=== PATIENT | male | born 1960 | race Caucasian/White ===

== ENCOUNTER 2023-05-27 09:15 | Emergency (ER) | payer OTHER, SELFPAY ==
[2023-05-27] VITALS (8 sets, daily range): BP systolic 133–204; BP diastolic 72–113
[2023-05-27] MEDS: LOW STRENGTH ASPIRIN 324 MG PO (10:04)
[2023-05-27] MEDS: NITROSTAT (SUBLINGUAL) 0.400000000000000022 MG SL (10:05)
--- NOTE | 2023-05-27 10:10 | ED.GENMED ---
History of Present Illness
General
Chief Complaint: Chest Pain
Source: patient and records (Cardiac catheterization 02/17/2018, proximal and distal Xience LAD stents)
Exam Limitations: none
Time Seen by Provider: 05/27/23 09:51
Nursing documentation reviewed up to this point in time: agreed with
Travel History
Have you had any contact with someone who has COVID-19?: No
Do you have any symptoms of coronavirus? Fever > 100 degrees, chills, cough, shortness of breath, sore throat, loss of taste or smell, muscle aches, or headache?: No
History of Present Illness
History of Present Illness:
63 yo male presents to the emergency department c/o left-sided chest pain that started at 3 AM. He has history of coronary disease and had a stent in 2018. He still has some tightness.
Past History
Past History
ED Past Medical History: CVA, Other (HIV), Other (vascular disease) and Other (HIV+/PVD/)
Social History
Tobacco: Smoker
Alcohol: Occasional
Personal: Partner
Living: with roommate
Phy Exam
Physical Exam
Physical Exam:
Physical Exam
General: no apparent distress, not acutely ill
Neck: supple. no meningeal signs. normal posterior pharynx
Heart: s1/s2 regular rate and rhythm, no murmur. equal radial
pulses.
HEENT: Pupils equal round reactive to light, EOMI
Lungs: no acute respiratory distress. clear bilaterally
Abdomen: normal bowel sounds. not tender. no CVAT
Neuro: alert and oriented. no focal neurological deficits cranial nerves II through XII intact
Skin: no rash
Psychiatric: well kept. interactive and cooperative
Extremities: no edema. no calf tenderness. negative homans. good distal pulses
Scores
Heart Score for Chest Pain Patients
STEMI patient?: No
History: Moderately Suspicious
ECG: Normal
Age: >45 - <65 years
Risk Factors: >/= 3 Risk Factors or History of CAD
Troponin: </= Normal Limit
Heart Score for Chest Pain Patients: 4
Heart Score Risk: 20.3% MACE over next 6 weeks
Course
Orders/Labs/Results
Orders:
Orders
05/27/23 09:25
ECG [Electrocardiogram (*1)] Urgent
Reason for Study: Chest Pain
EKG- Treatment ONCE
05/27/23 10:04
Aspirin Chewable [Low Strength Aspirin] 324 mg PO NOW STA
05/27/23 10:05
Nitroglycerin Sublingual [Nitrostat (Sublingual)] 0.4 mg SL NOW STA
05/27/23 10:10
IV Insert/Care/Rem.- Treatment PRN
05/27/23 10:12
Complete Blood Count/With Diff Urgent
Comprehensive Metabolic Panel Urgent
Troponin I Urgent
05/27/23 10:41
PTT Urgent
Prothrombin Time Urgent
05/27/23 11:42
Echo 2D MMode Color/Doppler Urgent
Reason for Study: Chest pain
05/27/23 11:53
CT Chest/abd/pelvis Angio W/wo Urgent
Comment:
Reason For Exam: chest pain, elevated blood pressure
05/27/23 13:09
Troponin I Routine
05/27/23 13:15
EKG [Electrocardiogram (*1)] Routine
Reason for Study: CAD
Abnormal Lab Results
05/27/23
10:12
MCV 98.9 H fL
(80.0-94.0)
MCH 35.9 H pg
(27.0-31.0)
Glucose 127 H mg/dl
(70-99)
05/27/23 10:12
05/27/23 10:12
Vital Signs
Initial and Last Documented VS:
Initial Vital Signs
Temp Pulse Resp BP Pulse Ox
98.4 F 110 18 204/113 95
05/27/23 09:31 05/27/23 09:31 05/27/23 09:31 05/27/23 09:31 05/27/23 09:31
Last Documented Vital Signs
Temp Pulse Resp BP Pulse Ox
98.4 F 66 24 142/76 92
05/27/23 09:31 05/27/23 14:00 05/27/23 14:00 05/27/23 14:00 05/27/23 14:00
MDM/Problems Addressed
Differential Diagnosis Includes:
Aortic dissection, ACS
MDM/Problems Addressed:
63-year-old male with chest pain, unclear etiology. Seen by cardiology in ED with stable echo, negative CT angiography and negative troponins. Stable for discharge.
Chronic conditions affecting care: DM, CAD, COPD and Other (HIV)
Acute Exacerbation and/or Progression of Chronic Illness: DM, CAD and COPD
*Radiology
Radiology exam reviewed: radiology read reviewed (CTA aorta, no acute findings)
*Pulse Oximetry
Patient hypoxic: no
*EKG
Interpreted by ED Provider?: Yes
EKG Intrepretation Date: 05/27/23
EKG Intrepretation Time: 13:15
Interpretation: normal
Comparison EKG: no changes
Heart Rate: 68
Rate: normal
Rhythm: sinus
[place]: normal axis
Interval: normal interval
QRS Pattern: normal QRS
Ischemia: no ischemia
*Boiler/Chiller Technician Interpretation
Rate: normal
Interpretation: normal
Heart Rate: 65
Rhythm: sinus
*Critical Care Note
Total Time (30-74mins, 75-104mins- exclusive of procedures): Not Applicable
Data Reviewed
Review of Other/Old Records Reveals: Operative Reports (Prior cardiac catheterization, with LAD stents by Dr. Bonilla)
Source: records
Patient Management
Social determinants of health affecting care: Living situation
Discussion with other providers: Psychiatric Clinician (Cardiology saw and evaluated patient, Dr. Veras, patient cleared)
Escalation/DeEscalation of care consider admission/obs:
Admit not indicated
ED Attending Note
-
Portions of this chart may have been created with voice recognition software.� Occasional wrong word or��sound alike� substitutions may have occurred due to the inherent limitations of voice recognition software.
Discharge Plan
Departure
Patient Disposition: Home (Routine Discharge)
Date of Disposition: 05/27/23
Time of Disposition: 15:16
Patient with high blood pressure during this ER visit?: Yes
Condition: Good
Discharge Problem:
Chest pain
Instructions: Chest Pain
Prescriptions:
No Action
clopidogrel 75 MG tablet
75 mg PO DAILY
valacyclovir 500 MG tablet
500 mg PO DAILY
nitroglycerin 0.4 MG tablet, sublingual
0.4 mg sublingual [id number] PRN (Reason: chest pain) Qty: 30 0RF
melatonin 3 MG tablet
3 - 6 mg PO HS PRN (Reason: sleep)
sildenafil [Viagra] 100 MG tablet
50 mg PO PRN PRN (Reason: sex)
fluticasone propionate 1 SPRAY spray,suspension
1 spray intranasal DAILY PRN (Reason: allergies)
nicotine [Nicoderm CQ] 1 EACH patch 24 hour
1 ea TD PRN PRN (Reason: smoking)
multivitamin with folic acid [Tab-A-Kath] 1 TABLET tablet
1 tab PO DAILY
bawblgdxz-ahareyth-bhalduq ala [Biktarvy] 1 EACH tablet
1 ea PO DAILY
cannabidiol [Epidiolex] 1 UNIT solution
1 unit PO PRN PRN (Reason: anxiety)
rosuvastatin 20 MG tablet
20 mg PO DAILY
Referrals:
Milly Dorman MD [Family Provider] -
Leonard Veras MD [Active] - Call in 1-3 days for appt
Interventions
Interventions:
*Risk Screen - Suicide Last Done: 05/27/23 09:31
*General Assessment Last Done: 05/27/23 09:31
*Neglect/Abuse Screening Last Done: 05/27/23 09:31
*ED COVID-19 Vaccine History Last Done: 05/27/23 09:31
ED- Cardiac Assessment Last Done: 05/27/23 10:07
[2023-05-27 10:25] LABS: % Basophils 0.7 % (0-2); % Eosinophils 0.8 % (0-6); % Immature Granulocytes 0.1 % (0-0.5); % Lymphocytes 23.1 % (20.5-51.1); % Monocytes 7.2 % (1.7-9.3); % Neutrophils 68.1 % (42.2-75.2); Absolute Basophils 0.1 10^3/uL (0-0.2); Absolute Eosinophils 0.1 10^3/uL (0-0.7); Absolute Lymphocytes 1.8 10^3/uL (1.2-3.4); Absolute Monocytes 0.6 10^3/uL (0.1-0.6); Absolute Neutrophils 5.2 10^3/uL (1.4-6.5); Hematocrit 46.9 % (39.0-52.0); Mean Corp Hgb Conc. 36.2 g/dL (33.0-37.0); Mean Corpuscular Hgb 35.9 pg (27.0-31.0); Mean Corpuscular Volume 98.9 fL (80.0-94.0); Mean Platelet Volume 9.2 fL (7.4-10.4); Nucleated Red Blood Cells % 0 % (-); Platelet Count 204 10^3/uL (130-400); Red Blood Cell Count 4.74 10^6/uL (4.70-6.10); Red Cell Dist. Width 12.5 % (11.5-14.5); White Blood Cell Count 7.6 10^3/uL (4.8-10.8)
[2023-05-27 10:38] LABS: ALT (SGPT) 47 U/L (0-50); AST (SGOT) 42 U/L (17-59); Albumin 4.7 g/dl (3.5-5.0); Alkaline Phosphatase 94 U/L (38-126); Blood Urea Nitrogen 13 mg/dl (9-20); Calcium 9.1 mg/dl (8.4-10.2); Carbon Dioxide 24 mmol/L (22-30); Chloride 104 mmol/L (98-107); Glucose 127 mg/dl (70-99); Sodium 136 mmol/L (135-145); Total Bilirubin 0.7 mg/dl (0.2-1.3); Total Protein 7.3 g/dl (6.3-8.2); eGFR > 60.00
[2023-05-27 10:47] LABS: Troponin I < 0.012 ng/ml
[2023-05-27 11:07] LABS: APTT 24.6 Sec (23.4-35.0)
--- NOTE | 2023-05-27 11:57 | CON.CAR ---
Addendum entered and electronically signed by Leonard Veras MD 05/27/23 12:20:
63 yo male with PMH of CAD, prior stents, PAD, HIV presents to ED with chest pain. Feels like a burning sensation since 3am. Not a pressure like prior [place]. Exam with RRR, no murmurs, no edema. BP severely elevated on arrival-he notes starting
amlodipine one week ago. TnI <0.012. EKG: no ischemic changes.
Undifferentiated chest pain
-no evidence of ACS at that time
-repeat 3 hr troponin
-echo, CXR, chest CT
Original Note:
Consultation
Consultation Request
Date/Time Consultation Requested: 05/27/23 11:15
Date/Time Consultation Performed: 05/27/23 11:25
Requesting Provider: Dr. Mukherjee
Performing Provider: INEZ Norman for Dr. Veras
Reason for Consultation: Chest pain
Medical History
-
Chief Complaint: Chest burning
History of Present Illness:
Km Orourke is a 62-year-old male with coronary artery disease (NSTEMI and PCI to proximal and mid LAD), PAD status post RLE stent, carotid stenosis s/p right CEA (05/2021), TIA, dyslipidemia, well-controlled HIV, 3 diabetes, medical marijuana
use, and tobacco use presented to the emergency department with a chief complaint of chest discomfort. He reports he has midsternal anterior burning. This woke him up from sleep at approximately 3 AM. He had intermittent associated shortness of
breath with nausea and sweating. This discomfort persisted until approximately 5:30 AM. He had sublingual nitroglycerin at home but states it was approximately 5 years old so he was unsure if it was still safe to use. The pain resolved
spontaneously. His BP was significantly elevated on arrival. He was given SL NTG. This does not feel like his prior NSTEMI. He reports with prior NSTEMI he had chest pressure and heaviness. He recently had amlodipine added to his medication
regimen for hypertension. Initially, he was started on 5 mg and it was titrated to 7.5 mg. His troponin was <0.012. EKG stable.
Past Medical History
Past Medical History: CAD, HTN, Hypercholesterolemia and Other (PAD, pre-DM, HIV+)
Past Surgical History: Other (CEA)
Social History
Tobacco: Smoker
Alcohol: Occasional
Personal:
Family History
Family History: Reviewed & Not Pertinent
Allergies / Home Medications
Allergy/AdvReac Type Severity Reaction Status Date / Time
sulfamethoxazole Allergy Mild Unknown Verified 05/27/23 09:35
[From Bactrim]
trimethoprim [From Bactrim] Allergy Mild Unknown Verified 05/27/23 09:35
Medication Instructions Recorded Confirmed Type
clopidogrel 75 mg tablet 75 mg PO DAILY Blood clot 02/14/18 05/25/21 History
prevention/tx
valacyclovir 500 mg tablet 500 mg PO DAILY Infection 02/14/18 05/25/21 History
nitroglycerin 0.4 mg sublingual 0.4 mg sublingual [id number] PRN 02/18/18 05/25/21 Rx
tablet chest pain ##30
bictegravir 50 mg-emtricitabine 1 ea PO DAILY HIV 05/17/21 05/25/21 History
200 mg-tenofovir alafenam 25 mg
tablet (Biktarvy)
cannabidiol 100 mg/mL oral 1 unit PO PRN PRN anxiety 05/17/21 05/25/21 History
solution (Epidiolex)
fluticasone propionate 50 1 spray intranasal DAILY PRN 05/17/21 05/25/21 History
mcg/actuation nasal allergies
spray,suspension
melatonin 3 mg tablet 3 - 6 mg PO HS PRN sleep 05/17/21 05/25/21 History
multivitamin with folic acid 400 1 tab PO DAILY Supplement 05/17/21 05/25/21 History
mcg tablet (Tab-A-Kath)
nicotine 7 mg/24 hr daily 1 ea TD PRN PRN smoking 05/17/21 05/25/21 History
transdermal patch (Nicoderm CQ)
rosuvastatin 20 mg tablet 20 mg PO DAILY High cholesterol 05/17/21 05/25/21 History
sildenafil 100 mg tablet (Viagra) 50 mg PO PRN PRN sex 05/17/21 05/25/21 History
Review of Systems
-
History Source: Patient
All other systems: Negative unless noted
Constitutional: No Symptoms
EENT: No Symptoms
Respiratory: No Symptoms
Cardiac: No Symptoms
Abdomen/GI: No Symptoms
Physical Exam
Vital Signs
Temp Pulse Resp BP Pulse Ox
98.4 F 71 21 133/72 91
05/27/23 09:31 05/27/23 11:00 05/27/23 11:00 05/27/23 11:00 05/27/23 11:00
Lab Results
05/27/23 10:12
05/27/23 10:12
Troponin I < 0.012 ng/ml 05/27/23 10:12
Physical Exam
General: Well Developed, Well Nourished, No Apparent Distress and Comfortable
HEENT: Normocephalic, Anicteric and Moist Mucous Membranes
Respiratory: Clear and Non Labored Respirations
Cardiac: S1/S2 and Regular Rhythm; Negative Peripheral Edema
Breast: Deferred by me
GI: Soft, Non Tender, Non Distended and Normal Bowel Sounds
Genito-urinary: No Costovertebral Tender
Musculoskeletal: No Clubbing, No Cyanosis and No Edema
Skin: Warm and Dry
Neuro: AO x 3
Hematologic/Lymphatic: No Lymphadenopathy
Psych: Calm
Impression / Plan
-
Chest pain
-Burning sensation that woke him up from a sleep and lasted 2.5 hours
-Troponin < 0.012 & EKG stable
-Currently chest pain free
-Echo & CXR ordered
CAD
-PCI to p/mLAD, non obstructive disease in mLCx, mRCA, and D1
-Continue clopidogrel & rosuvastatin (bradycardia with beta les)
HTN
-He was given SL NTG (no sildienafil for 24 hours) with improvement in BP
-Amlodipine added recently and [facility]
Pre-DM
HLD, last LDL < 70
PAD, prior RLE stent, chronic occlusion of the right superficial femoral artery with distal reconstitution, on clopidogrel
Carotid stenosis S/O right CEA (2021)
HIV, chronic (infected 1984), well controlled, follows with Dr. Campbell
Prior TIA
Medical marijuana
Tobacco abuse, current, cessation recommended
Data Reviewed
-
EKG: Report Reviewed by me (Sinus rhythm, sinus arrhythmia, rate 86)
Labs: Labs Reviewed by me
Old Records: Reviewed
[2023-05-27 13:42] LABS: Troponin I < 0.012 ng/ml
== END 2023-05-27 15:35 | disposition home or self-care (01) ==
LOC: EMR 09:15
PROVIDERS: Nurse Practitioner Gerontology; EMERGENCY PHYSICIAN Emergency Medicine; FAMILY PHYSICIAN Internal Medicine; OTHER PHYSICIAN Internal Medicine
DX: R07.89 Other chest pain (principal); F17.200 Nicotine dependence, unspecified, uncomplicated; I10 Essential (primary) hypertension; E11.51 Type 2 diabetes mellitus with diabetic peripheral angiopathy without gangrene; I25.10 Atherosclerotic heart disease of native coronary artery without angina pectoris; I25.2 Old myocardial infarction
CPT/HCPCS: 99285; 71275; 74174; 80053; 84484; 85025; 85610; 85730; 93005; 93306; Q9967

== ENCOUNTER → 2023-06-19 10:37 | Outpatient (REF) | payer OTHER, SELFPAY | LOC: DHCBC/DCA 10:37 | PROVIDERS: ATTENDING PHYSICIAN Internal Medicine; FAMILY PHYSICIAN Internal Medicine | DX: Z72.0 Tobacco use (principal); I25.10 Atherosclerotic heart disease of native coronary artery without angina pectoris; R07.9 Chest pain, unspecified | CPT/HCPCS: 78452; 93017; A9500 ==

== ENCOUNTER → 2023-09-26 06:26 | Day surgery (SDC) | payer OTHER, SELFPAY | LOC: GI 06:26 | PROVIDERS: ATTENDING PHYSICIAN Internal Medicine Gastroenterology; FAMILY PHYSICIAN Internal Medicine | DX: Z12.11 Encounter for screening for malignant neoplasm of colon (principal); D12.2 Benign neoplasm of ascending colon; D12.5 Benign neoplasm of sigmoid colon; K57.30 Diverticulosis of large intestine without perforation or abscess without bleeding; K64.8 Other hemorrhoids | CPT/HCPCS: 45385; 88305 ==

== ENCOUNTER → 2024-01-22 07:34 | Outpatient (REF) | payer OTHER, SELFPAY | LOC: RAD 07:34 | PROVIDERS: ATTENDING PHYSICIAN Surgery Vascular Surgery; FAMILY PHYSICIAN Internal Medicine | DX: I73.9 Peripheral vascular disease, unspecified (principal); I65.21 Occlusion and stenosis of right carotid artery | CPT/HCPCS: 93880; 93922; 93925 ==

== ENCOUNTER 2024-02-27 06:22 | Day surgery (SDC) | payer OTHER, SELFPAY ==
[2024-02-27 10:54] VITALS: BMI 21.7
[2024-02-27 10:55] VITALS: BMI 21.7
[2024-02-27 10:56] VITALS: BP 110/79
[2024-02-27 14:33] VITALS: BP 110/60
[2024-02-27 14:45] VITALS: BP 120/67
[2024-02-27 15:00] VITALS: BP 131/69
[2024-02-27 15:11] VITALS: BP 139/64
== END 2024-02-27 15:25 | disposition home or self-care (01) ==
LOC: SDS 06:22
PROVIDERS: ATTENDING PHYSICIAN Surgery
DX: A63.0 Anogenital (venereal) warts (principal); K64.8 Other hemorrhoids; Z21 Asymptomatic human immunodeficiency virus [HIV] infection status
CPT/HCPCS: 46924; 88304; 88305; 93005

== ENCOUNTER → 2025-02-01 07:30 | Outpatient (REF) | payer OTHER, SELFPAY | LOC: RAD 07:30 | PROVIDERS: ATTENDING PHYSICIAN Surgery Vascular Surgery; FAMILY PHYSICIAN Internal Medicine | DX: I73.9 Peripheral vascular disease, unspecified (principal); I65.21 Occlusion and stenosis of right carotid artery | CPT/HCPCS: 93880; 93922; 93925 ==

== ENCOUNTER → 2025-02-26 06:35 | Outpatient (REF) | payer OTHER, SELFPAY | LOC: RAD 06:35 | PROVIDERS: ATTENDING PHYSICIAN Registered Nurse; FAMILY PHYSICIAN Internal Medicine | DX: I65.21 Occlusion and stenosis of right carotid artery (principal) | CPT/HCPCS: 70496; 70498; Q9967 ==

== ENCOUNTER 2025-03-31 06:18 | Inpatient (IN) | payer OTHER, SELFPAY ==
[2025-03-25 09:42] VITALS: BMI 21.2
[2025-03-25 09:56] LABS: Hematocrit 45.4 % (39.0-52.0); Hemoglobin 15.8 g/dL (13.0-18.0); Mean Corp Hgb Conc. 34.8 g/dL (33.0-37.0); Mean Corpuscular Volume 96.4 fL (80.0-94.0); Nucleated Red Blood Cells % 0 % (-); Platelet Count 205 10^3/uL (130-400); Red Cell Dist. Width 12.8 % (11.5-14.5)
[2025-03-25 09:59] LABS: INR 1.02; PT 13.2 Sec (11.4-14.6)
[2025-03-25 10:00] LABS: APTT 24.7 Sec (23.4-35.0)
[2025-03-25 10:20] LABS: Blood Urea Nitrogen 12 mg/dl (9-20); Calcium 9.7 mg/dl (8.4-10.2); Carbon Dioxide 29 mmol/L (22-30); Chloride 105 mmol/L (98-107); Estimated Creatinine Clearance 80 ml/min; Glucose 108 mg/dl (70-99); Potassium 4.6 mmol/L (3.5-5.1); Sodium 138 mmol/L (135-145); eGFR > 60.00
[2025-03-31] MEDS: NSS 500 IV (06:48)
[2025-03-31] MEDS: BACTROBAN NASAL 1 GRAM NASAL (06:48)
[2025-03-31 06:51] VITALS: BP 128/63
--- NOTE | 2025-03-31 07:01 | W.SUR.PREOP ---
Pre-Operative Surgical Note
-
I have examined this patient prior to the performance of the scheduled procedure.
The patient's condition is unchanged from the time of the current History and
Physical and the patient is able to undergo the scheduled procedure.
--- NOTE | 2025-03-31 09:55 | OR.RPT ---
Operative Report
Operative Report
PROCEDURE DATE: 04/10/2025
Preoperative diagnosis: Critical left carotid artery stenosis, asymptomatic.
Postoperative diagnosis: Same
Procedure: Left carotid endarterectomy with bovine pericardial patch angioplasty and intraoperative EEG/SSEP monitoring.
Surgeon: Jef
Chapter Relations Administrator: ANASTASIIA Morocho, required for all aspects of procedure including assistance with traction/countertraction, following suture line, assistance with closure.
Complications: None
Anesthesia: General
Indications for procedure:
Critical left carotid artery stenosis. Progressed. Risk/benefits/alternatives were revascularization/endarterectomy all fully discussed. Patient understood all wish to proceed.
Description of procedure:
Patient was identified brought to the operating room placed on the table in supine position. After the adequate administration of anesthesia and perioperative antibiotics he was prepped and draped in the standard surgical fashion. A standard
preoperative timeout was undertaken and everybody was in agreement the plan. A standard longitudinal incision was made in the left neck that was carried through the skin subcutaneous tissue. Using the electrocautery dissection was carried through
the platysma muscle layer and then alongside the anterior medial border of the sternocleidomastoid muscle. Then using a combination of sharp dissection with the Metzenbaum scissors and electrocautery I dissected along the anterior medial border of
the internal jugular vein. A small rent was made in the anterior wall while retracting the vein, and this was primarily repaired with 5-0 Prolene suture. The common facial vein branch was ligated between silk ties and then divided. I then
deepened my retraction. The common carotid artery was identified and carefully dissected away from the surrounding structures take great care to avoid any injury to the structures. A vessel loop was passed around it which was double looped, but
not yet tightened. Note the vagus nerve was visualized in its usual course posterior/lateral to the common carotid artery, and was protected from harm's way. I then continued my dissection up the common carotid artery to the bulb staying only on
the anterior surface of the carotid artery. Then I carried the dissection up to the internal carotid artery and then to the distal internal carotid artery. The tissues here were fairly sticky likely from the inflammatory reaction of the plaque.
Therefore I first dissected the external carotid and superior thyroid branches which were more easily dissectible. I circumferentially dissected these and passed Vesseloops around them. Next, I identified where the distal common carotid artery
where it was soft and carefully circumferentially dissected the internal carotid artery with minimal mobilization and passed a vessel loop around it. Note the hypoglossal nerve was not visualized in our field and was felt to be further cephalad.
The patient was given an appropriate dose of heparin 6500 units. After 3 minutes of heparin circulation time and confirmation of optimization of the blood pressure with my anesthesiology colleagues, I clamped the distal internal carotid artery
where it was soft. There was no immediate EEG or SSEP changes. After 1 minute of test clamp time there was no changes noted. Therefore at this point, the vessel loops on the external carotid artery and superior thyroid branches were tightened and
the common carotid artery was clamped where it was soft proximally. When I clamped, I could palpate in the common carotid artery where I clamped it there was still some plaque though did not appear to be stenosis rendering, I therefore then quickly
dissected more proximally on the common carotid artery, extending the incision slightly proximally as well. I then moved my clamp more proximally. An arteriotomy was now made on the common carotid artery with an 11 blade and extended using a Salgado
scissor. I extended the arteriotomy onto the mid to distal internal carotid artery. There was severe calcified near occlusive bulky plaque at the bifurcation extending into the very proximal internal carotid artery. A [place] was then used to
endarterectomized the plaque. An endarterectomy plane was created, and the plaque was then endarterectomized. Distally I feathered the plaque out to a nice clean endpoint in the distal internal carotid artery. Next I endarterectomized the intima
back to normal intima in the common carotid artery, and the intima was cut flush there. There was still slightly thickened intima on the lateral wall of the common carotid artery, but no significant residual plaque, and no luminal narrowing. I
then grasped the plaque and everted plaque out of the origin of the external carotid artery. The plaque was then sent off for specimen. The origin of the external carotid artery was carefully visualized and any fine debris were removed with fine
forceps. Proximal and distal endpoints were then carefully inspected. Any fine debris was removed with fine forceps, and the intima was noted to be nicely adherent proximally distally. Next any fine debris were removed throughout the
endarterectomy bed with fine forceps. Two posterior wall 7-0 Prolene sutures were placed somewhat tacking posteriorly as after the endarterectomy it looks that there may have been a single focal weak point in the wall. Now the wall look nice and
healthy. I then flushed heparinized saline. I was very satisfied. Then, I used a bovine pericardial patch to sew a patch angioplasty with a running 6-0 Prolene suture. Prior to completing and tying down my suture line, I backbled sequentially
each branch and reclamped each branch prior to unclamping the next branch. I then irrigated with heparinized saline. Then I completed and tied down my suture line. We then restored flow in the common carotid and external carotid arteries.
Finally, we released flow in the internal carotid artery. There was excellent pulsatile flow in all 3 vessels. There was an excellent Doppler signal in the internal carotid artery distal to the patch with a good normal low resistance Doppler
signal. There was a good Doppler signal in the external carotid artery as well. A couple 6-0 Prolene [id number] sutures were placed along any bleeding points along the suture line. Protamine was given to reverse the heparin. Hemostasis was
completely achieved. We then irrigated and confirmed full hemostasis. We then closed in layers with 2-0 Vicryl layer to reapproximate the sternocleidomastoid muscle, followed by 3-0 Vicryl platysma muscle running layer, followed by 4-0 Monocryl
subcuticular stitch. Dermabond was applied. The patient tolerated procedure well. He awoke moving all extremities to command with tongue in the midline.
--- NOTE | 2025-03-31 10:03 | W.SUR.POST ---
Surgical Immediate Post Op
Note
Pre Op Diagnosis: Left carotid stenosis
Post Op Diagnosis: Left carotid stenosis
Procedure Performed: Left carotid endarterectomy with bovine pericardium patch angioplasty with EEG and SSEP monitoring
Primary Surgeon: Ronald Fuchs MD
Electronic Equipment Trades Worker: INEZ Rush
Anesthesia: GETA
Estimated Blood Loss: 15ml
Fluids: See anesthesia flowsheets
Drains/Shunts: N/A
Specimens/Cultures: Left carotid plaque
Doppler/Duplex/Angio (Y/N): Y, doppler
Complications: None
Operative Findings: Successful left carotid endarterectomy with patient able to move BL UE and LE to command and spontaneously
[2025-03-31 10:09] VITALS: BP 128/63; BP 138/70
[2025-03-31 10:15] VITALS: BP 125/63
[2025-03-31 10:30] VITALS: BP 103/60
[2025-03-31 10:38] LABS: Hematocrit 40.3 % (39.0-52.0); Hemoglobin 14.0 g/dL (13.0-18.0); Mean Corp Hgb Conc. 34.7 g/dL (33.0-37.0); Mean Corpuscular Volume 101.0 fL (80.0-94.0); Platelet Count 172 10^3/uL (130-400); Red Cell Dist. Width 12.9 % (11.5-14.5)
--- NOTE | 2025-03-31 10:40 | CON.INTV ---
Consultation
Consultation Request
Date/Time Consultation Requested: 03/31/2025 - 1006
Date/Time Consultation Performed: 03/31/2025 - 1025
Requesting Provider: INEZ Aviles
Performing Provider: Dr. Cortes
Reason for Consultation: s/p L-CEA
Medical History
-
Chief Complaint: Elective left CEA
History of Present Illness:
65-year-old male active tobacco smoker with a past medical history of bilateral carotid artery stenosis with history of right CEA (May 2021), PAD, hypertension, HIV on ART, history of CVA/multiple TIAs, anxiety and panic disorder who presents
for elective left sided CEA. Patient known to vascular surgery with last visit on 03/08/[address] Fuchs. CTA head & neck on 02/26/2025 showed severe stenosis of left internal carotid artery with approximately 90% stenosis. Also post right
carotid endarterectomy without signs of recurrent significant stenosis. Given the CTA head & neck findings, surgical intervention was recommended for stroke prevention. Patient agreed with procedure, and today he underwent a left carotid
endarterectomy with bovine pericardial patch angioplasty and intraoperative EEG/SSEP monitoring. There were no immediate complications, and patient was transferred to the ICU postoperatively for further care. Medicine Worker service consulted for
additional management/recommendations.
When I saw the patient, he was resting in bed, currently on 3 L/min nasal cannula saturating 97% with BP via A-line: 156/69, and heart rate 80. He is a an active smoker, smoking 0.5 PPD for 40 years, although he has quit here and there sometimes
for a year or longer. He currently denies chest pain, SOB, PATEL, nausea, visual changes, fevers or chills.
PMHx: Hypertension, HIV, history of CVA, history of multiple TIAs, anxiety, panic disorder, history of right knee torn meniscus, PVD, tobacco use disorder
PSHx: Hemorrhoidectomy, stent in right leg, colectomy, right�CEA (05/2021)
Past Medical History
Past Medical History: Other (Above as per HPI)
Past Surgical History: Other (Above as per HPI)
Social History
Tobacco: Smoker (Smokes 3/4 PPD x 40 years)
Alcohol: None
Drug: Marijuana
Family History
Family History: Other (Mother: Stroke; sibling: Cirrhosis)
Allergies / Home Medications
Allergies
Allergy/AdvReac Type Severity Reaction Status Date / Time
sulfamethoxazole (From Allergy Mild Rash Verified 03/23/25 14:33
Bactrim)
trimethoprim (From Bactrim) Allergy Mild Rash Verified 03/23/25 14:33
Home Medications
�Medication �Instructions �Recorded �Confirmed �Last Taken �Type
clopidogrel 75 mg tablet 75 mg PO DAILY Blood clot 02/14/18 03/31/25 03/31/25 03:00 History
prevention/tx
valacyclovir 500 mg tablet 500 mg PO DAILY Infection 02/14/18 03/31/25 03/31/25 03:00 History
melatonin 3 mg tablet 3 - 6 mg PO HS PRN sleep 05/17/21 03/31/25 03/29/25 22:00 History
rosuvastatin 20 mg tablet 20 mg PO DAILY High cholesterol 05/17/21 03/31/25 03/31/25 03:00 History
sildenafil 100 mg tablet (Viagra) 50 mg PO PRN PRN ED 05/17/21 03/31/25 03/24/25 22:00 History
Cbd 1 gummy PO DAILY PRN Motivation 02/26/24 03/31/25 03/30/25 18:30 History
amlodipine 10 mg tablet 10 mg PO DAILY Blood Pressure 02/26/24 03/31/25 03/31/25 03:00 History
bictegravir 50 mg-emtricitabine 1 tab PO DAILY Infection 02/26/24 03/31/25 03/31/25 03:00 History
200 mg-tenofovir alafenam 25 mg
tablet (Biktarvy)
cholecalciferol (vitamin D3) 50 50 mcg PO DAILY Supplement 02/26/24 03/31/25 03/24/25 10:00 History
mcg (2,000 unit) capsule (Vitamin
D3)
Review of Systems
-
History Source: Patient
All other systems: Negative unless noted
Vitals / Labs / Diagnostic Testing
Vital Signs
Temp Pulse Resp BP Pulse Ox
98.5 F 70 22 102/70 92
03/31/25 11:31 03/31/25 11:30 03/31/25 11:30 03/31/25 11:13 03/31/25 11:30
Lab Data
03/31/25 10:19
03/31/25 10:19
Diagnostic Testing:
Physical Exam
-
HEENT: Normocephalic and Anicteric
Cardiovascular: S1/S2 and Peripheral Edema (negative)
Respiratory: Wheeze (negative), Rales (negative), Rhonchi (negative) and Non-Labored Respirations
GI: Soft, Non Distended, Non Tender and Normal Bowel Sounds
Neurology: AO x 3 and Tremors (negative)
Skin: Warm and Dry
General: Respiratory Distress (negative), Comfortable, Fever (negative) and Chills (negative)
Assessment
-
Assessment: 65-year-old male active tobacco smoker with a past medical history of bilateral carotid artery stenosis with history of right CEA (May 2021), PAD, hypertension, HIV on ART, history of CVA/multiple TIAs, anxiety and panic disorder
who presents for elective left sided CEA. Patient known to vascular surgery with last visit on 03/08/[address] Fuchs. CTA head & neck on 02/26/2025 showed severe stenosis of left internal carotid artery with approximately 90% stenosis. Also post
right carotid endarterectomy without signs of recurrent significant stenosis. Given the CTA head & neck findings, surgical intervention was recommended for stroke prevention. Patient agreed with procedure, and today he underwent a left carotid
endarterectomy with bovine pericardial patch angioplasty and intraoperative EEG/SSEP monitoring. There were no immediate complications, and patient was transferred to the ICU postoperatively for further care. Medicine Worker service consulted for
additional management/recommendations.
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
Impression:
#Critical left carotid artery stenosis (asymptomatic) s/p left carotid endarterectomy with bovine pericardial patch angioplasty and intraoperative EEG/SSEP monitoring - POD#0
#Hyponatremia (mild)
#Active tobacco use
#History of CVA/multiple TIAs
#History of anxiety/panic disorder
#PAD
#History of right carotid endarterectomy (May 2021)
Plan:
Postoperative surgical intensive care unit monitoring
Supplemental oxygen as needed to maintain SpO2 >90-94%
prn nebulized bronchodilators
Incentive spirometry encouraged 10x per hour for at least 4 hrs a day
Aspiration precautions
Pain control
Neuro and vascular checks per protocol
Maintain MAP>65
Replete electrolytes with K>4, Mg>2
Maintain euglycemia with goal BG 140-180
Nicotine patch
Given his significant tobacco smoking history and age, he qualifies for annual lung cancer screening. This can be performed as an outpatient.
Vascular surgery following-correspondence and operative notes reviewed
Transfuse blood products as needed to keep Hb>7g/dL, and plt>50k (given post-operative status)
DVT prophylaxis
Early nutrition
Early mobilization
Critical care statement: A total of 44 minutes of critical care time was provided for this patient today. This includes management of unstable vital signs, evaluation of the patient at bedside, reviewing the patient's pertinent medical records
including radiographs, microbiology, laboratory evaluations, and discussion with primary team, consultants, pharmacy, nutrition, physical therapy, case management, charge nurse, critical care nursing, and respiratory therapy.
[2025-03-31 10:45] VITALS: BP 101/66
[2025-03-31 11:13] VITALS: BP 102/70
[2025-03-31 11:13] LABS: Glucose - Point of Care 137 mg/dl (70-99)
[2025-03-31 11:13] LABS: Blood Urea Nitrogen 11 mg/dl (9-20); Calcium 8.0 mg/dl (8.4-10.2); Carbon Dioxide 25 mmol/L (22-30); Chloride 106 mmol/L (98-107); Estimated Creatinine Clearance 90 ml/min; Glucose 132 mg/dl (70-99); Potassium 4.3 mmol/L (3.5-5.1); Sodium 134 mmol/L (135-145); eGFR > 60.00
[2025-03-31] MEDS: NSS 1000 IV ×2 (11:15→22:48)
[2025-03-31 11:31] VITALS: BMI 22.1
--- NOTE | 2025-03-31 14:40 | PTCARENOTE ---
received pt from PACU at 11:15 , alert and oriented, GCS 15 , L neck with surgical glue , no hematoma or swelling , denies co pain , NSR on director of cardiac rehabilitation , on 3L NC and weaned off by 14:00 , tolerated clear liquids for lunch will advance diet,
voids in urinal
[2025-03-31] MEDS: HEPARIN 5000 UNITS SC ×2 (16:03→22:48)
[2025-03-31] MEDS: NICODERM TRANSDERMAL 21 MG TRANSDERM (17:10)
--- NOTE | 2025-03-31 17:41 | PTCARENOTE ---
no complaints of pain , no change in assessments , increased diet to regular tolerating well
--- NOTE | 2025-04-01 | PTCARENOTE ---
no changes in assessment. pt denies pain. remains on q1h neuro checks. SBP in goal range on arterial line. on 2L NC, spO2 95%. using urinal while on bedrest. L neck with incision and surgical adhesive, no edema/hematoma/bruising noted. call parks in
reach.
[2025-04-01 05:31] LABS: Hematocrit 38.7 % (39.0-52.0); Hemoglobin 13.5 g/dL (13.0-18.0); Mean Corp Hgb Conc. 34.9 g/dL (33.0-37.0); Mean Corpuscular Volume 98.2 fL (80.0-94.0); Platelet Count 185 10^3/uL (130-400); Red Cell Dist. Width 12.4 % (11.5-14.5)
[2025-04-01 05:33] LABS: INR 1.03; PT 13.3 Sec (11.4-14.6)
[2025-04-01 05:34] LABS: APTT 25.9 Sec (23.4-35.0)
[2025-04-01 05:52] LABS: Blood Urea Nitrogen 8 mg/dl (9-20); Calcium 8.3 mg/dl (8.4-10.2); Carbon Dioxide 24 mmol/L (22-30); Chloride 106 mmol/L (98-107); Estimated Creatinine Clearance 107 ml/min; Glucose 117 mg/dl (70-99); Potassium 4.0 mmol/L (3.5-5.1); Sodium 137 mmol/L (135-145); eGFR > 60.00
[2025-04-01 06:00] VITALS: BMI 22.1
--- NOTE | 2025-04-01 06:06 | PTCARENOTE ---
AM labs sent. no changes noted in assessment. call parks remains in reach.
[2025-04-01] MEDS: VITAMIN D3 (cholecalciferol) 50 MCG PO (07:28)
[2025-04-01] MEDS: VALTREX 500 MG PO (07:28)
[2025-04-01] MEDS: PLAVIX 75 MG PO (07:28)
[2025-04-01] MEDS: NORVASC 10 MG PO (07:28)
[2025-04-01] MEDS: HEPARIN 5000 UNITS SC (07:28)
[2025-04-01] MEDS: CRESTOR 20 MG PO (07:28)
[2025-04-01] MEDS: NICODERM TRANSDERMAL 21 MG TRANSDERM (07:29)
--- NOTE | 2025-04-01 07:59 | W.PN.VS ---
Today's Communication / Plan
-
Seen and assessed with Dr Fuchs
Assessment/Plan
-
POD 1 left CEA
Plan:
DC fernanda
DC IVF
OOB/ambulate
PO meds
Increase diet
Likely DC later today
Subjective Data
-
Date of Service: April 01, 2025
Pt seen at bedside this am with Dr Fuchs. Pt offers no complaints at this time. No events overnight. No gtts.
Objective Data
-
Vital Signs
Temp Pulse Resp BP Pulse Ox
98.7 F 77 27 144/63 96
04/01/25 04:45 04/01/25 07:28 04/01/25 07:00 04/01/25 07:28 04/01/25 07:00
Intake and Output
03/31/25 04/01/25 04/02/25
06:59 06:59 06:59
Intake Total 2850 / 2850
Output Total 3700 / 3700
Balance -850 / -850
Intake:
Oral fluids 1230 / 1230
IV fluids (Total) 1620 / 1620
Normosol 100 / 100
Nss 1,000 ml @ 80 mls/hr IV . 1520 / 1520
[id number] Rx#:[id number]
Output:
Urine, Voided 3700 / 3700
Lab Results
04/01/25 05:02
04/01/25 05:02
Calcium 8.3 mg/dl (8.4-10.2) L 04/01/25 05:02
Physical Exam
-
AAOx3
No tachypnea
No tachycardia
Abd soft
Neck site c/d/i, soft, flat
Moves all extremities equally
Tongue midline
--- NOTE | 2025-04-01 08:17 | W.PN.INTV ---
Today's Communication / Plan
Recommendations
Being prepared for discharge today
Postoperative management as per vascular surgery
Encourage incentive spirometer
Pain control
Continue Biktarvy -he should be following with an ID physician as an outpatient to manage his history of HIV
Outpatient pulmonary office follow-up will be arranged given his tobacco smoking history as he qualifies for lung cancer screening; will also discuss obtaining a PFT at least for baseline (although only focal right upper lobe centrilobular emphysema
seen on CT chest from May 2023)
No additional recommendations at this time. Block Cleaner/Pulmonary service will now sign off. Please reconsult if there are any additional questions/concerns, or if patient's respiratory status deteriorates.
Assessment
-
Assessment: 65-year-old male active tobacco smoker with a past medical history of bilateral carotid artery stenosis with history of right CEA (May 2021), PAD, hypertension, HIV on ART, history of CVA/multiple TIAs, anxiety and panic disorder
who presents for elective left sided CEA. Patient known to vascular surgery with last visit on 03/08/[address] Fuchs. CTA head & neck on 02/26/2025 showed severe stenosis of left internal carotid artery with approximately 90% stenosis. Also post
right carotid endarterectomy without signs of recurrent significant stenosis. Given the CTA head & neck findings, surgical intervention was recommended for stroke prevention. Patient agreed with procedure, and today he underwent a left carotid
endarterectomy with bovine pericardial patch angioplasty and intraoperative EEG/SSEP monitoring. There were no immediate complications, and patient was transferred to the ICU postoperatively for further care. Block Cleaner service consulted for
additional management/recommendations.
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
Impression:
#Critical left carotid artery stenosis (asymptomatic) s/p left carotid endarterectomy with bovine pericardial patch angioplasty and intraoperative EEG/SSEP monitoring - POD#1
#Hyponatremia (mild) - now resolved
#Active tobacco use
#History of CVA/multiple TIAs
#History of anxiety/panic disorder
#PAD
#History of right carotid endarterectomy (May 2021)
Plan:
Postoperative surgical intensive care unit monitoring
Supplemental oxygen as needed to maintain SpO2 >90-94%
prn nebulized bronchodilators - not currently bronchospastic
Incentive spirometry encouraged 10x per hour for at least 4 hrs a day
Aspiration precautions
Pain control
Neuro and vascular checks per protocol
Maintain MAP>65
Replete electrolytes with K>4, Mg>2
Maintain euglycemia with goal BG 140-180
Nicotine patch
Surprisingly, he only had focal centrilobular emphysema seen on CT chest from May 2023 despite him having a significant tobacco smoking history (50-crjt-hhph history, and still smoking)
Given his significant tobacco smoking history and age, he qualifies for annual lung cancer screening. This can be performed as an outpatient. Of note, CT chest from May 2023 did not show any concerning nodules at the time.
Vascular surgery following-correspondence and operative notes reviewed
Transfuse blood products as needed to keep Hb>7g/dL, and plt>50k (given post-operative status)
DVT prophylaxis
Early nutrition
Early mobilization
Patient is being prepared for discharge home today. As stated above, I will discuss with him as outpatient about obtaining annual LDCT chest as well as PFT testing (at least for baseline given his significant tobacco smoking history).
No additional recommendations at this time. Block Cleaner/Pulmonary service will now sign off. Thank you for allowing us to be involved in the care of this patient. Please reconsult if there are any additional questions/concerns, or if patient's
respiratory status deteriorates.
Total time spent today was 58 minutes for this encounter. Time includes reviewing laboratory test/imaging results, reviewing pertinent medical records, obtaining and reviewing medical history, performing an appropriate exam, ordering medications,
tests and procedures. Time also includes documentation of this encounter, coordinating patient care and communicating with other healthcare professionals. Total time does not include separately billed tests performed on this date of service.
Subjective Dataa
Subjective Data
Date of Service:
Date of Service: April 01, 2025
Chief Complaint: Block Cleaner Follow Up
Subjective:
Patient was seen and evaluated today at bedside. Awaiting to go home today.
Review of Systems
General: Other (Negative unless mentioned above)
Objective Data
Data Reviewed
Vital Signs / I&O / Oxygen:
Vital Signs
Temp Pulse Resp BP Pulse Ox
98.6 F 77 30 122/60 95
04/01/25 08:26 04/01/25 09:00 04/01/25 09:00 04/01/25 09:00 04/01/25 09:00
Intake and Output
03/31/25 04/01/25 04/02/25
06:59 06:59 06:59
Intake Total 2850 / 2930 160 / 160
Output Total 3700 / 3700 300 / 300
Balance -850 / -770 -140 / -140
SaO2 95
Nasal Cannula flow liters per 2
minute
Physical Exam
General: Respiratory Distress (negative), Comfortable, Chills (negative) and Sweats (negative)
HEENT: Normocephalic and Anicteric
Cardiovascular: S1-S2 and Peripheral Edema (negative)
Respiratory: Clear, Wheeze (negative), Crackles (negative), Rhonchi (negative) and Stridor (negative)
GI: Soft, Non Distended, Non Tender and Normal Bowel Sounds
Neurology: AO x 3 and Tremors (negative)
Skin: Warm, Dry, Cyanosis (negative) and Jaundice (negative)
Labs/Micro/Reports
Lab Data
04/01/25 05:02
04/01/25 05:02
Laboratory Results
04/01/25
05:02
PT 13.3
INR 1.03
APTT 25.9
[2025-04-01 09:00] VITALS: BP 122/60
--- NOTE | 2025-04-01 09:00 | PTCARENOTE ---
Assumed care of pt. VSS, neuro assessment wnl. IVF stopped, a-line removed, OOB to chair with standby asst. Plan of care discussed. Biktarvy not administered due to unavailability. Pt plans to take med at home after discharge.
[2025-04-01 10:00] VITALS: BP 109/58
[2025-04-01 11:00] VITALS: BP 116/66
[2025-04-01 12:00] VITALS: BP 114/59
--- NOTE | 2025-04-01 12:25 | CM ---
Patient admitted for elective carotid endarterectomy.
ISABEL met with Km to complete IA. He lives with his resides with his spouse, Charles, in a three story home with one step to enter. There is a full flight of steps to get to bedroom/full bathroom; there is a bathroom on the first floor, as well.
Prior to admission he reports being independent with ambulation and adls; no DME in the home.
--- NOTE | 2025-04-02 11:19 | W.PN.UPDATE ---
Update Note
Progress Note Update
DC on plavix/statin
Not on ASA d/t sulfa allergy- cross sensitivity
== END 2025-04-01 13:00 | disposition home or self-care (01) | DRG 38 ==
LOC: ICU 06:18
PROVIDERS: Nurse Practitioner; ADMITTING PHYSICIAN Surgery Vascular Surgery; CONSULT PHYSICIAN Internal Medicine Critical Care Medicine; PRIMARYCARE PHYSICIAN Internal Medicine
PROC: 03UJ0KZ Supplement Left Common Carotid Artery with Nonautologous Tissue Substitute, Open Approach (ICD-10-PCS; 2025-03-31)
PROC: 03CJ0ZZ Extirpation of Matter from Left Common Carotid Artery, Open Approach (ICD-10-PCS; 2025-03-31)
DX: I65.22 Occlusion and stenosis of left carotid artery (principal); E87.1 Hypo-osmolality and hyponatremia; F17.210 Nicotine dependence, cigarettes, uncomplicated; Z86.73 Personal history of transient ischemic attack (TIA), and cerebral infarction without residual deficits; I73.9 Peripheral vascular disease, unspecified; I10 Essential (primary) hypertension; Z21 Asymptomatic human immunodeficiency virus [HIV] infection status; Z79.899 Other long term (current) drug therapy
CPT/HCPCS: 35301; 36415; 71046; 80048; 82962; 85025; 85027; 85610; 85730; 86850; 86900; 86901; 88304; 88311; 95938; 95941; 95955; 99406